=== PATIENT | male | born 1965 | race Caucasian/White ===

== ENCOUNTER → 2025-02-01 | Outpatient (CLI) | payer OTHER ==
--- NOTE | 2025-02-01 09:17 | CT ---
EXAMINATION TYPE: CT chest w con DATE OF EXAM: 02/01/2025 COMPARISON: NONE HISTORY: Cough CT DLP: 425 mGycm. Automated Exposure Control for Dose Reduction was Utilized. TECHNIQUE: CT scan of the thorax is performed following with IV Contrast, patient injected with 100 ml mL of Isovue 300. FINDINGS: LUNGS: The lungs are grossly clear, there is no concerning parenchymal mass or focal consolidation id entified. There is no pleural effusion or pneumothorax seen. The tracheobronchial tree is patent. HEART: Size within normal limits. No significant coronary artery calcifications. MEDIASTINUM: There are no greater than 1 cm hilar or mediastinal lymph nodes. No pericardial effusi on is seen. OTHER: No additional significant abnormality is seen. IMPRESSION: No acute pulmonary infiltrate. Unremarkable study. [facility], , 02/01/2025 9:14 AM
== END | disposition home or self-care (01) ==
LOC: RADCTMAIN 08:27
PROVIDERS: ATTEND Internal Medicine
DX: R05.9 Cough, unspecified (principal)
CPT/HCPCS: 71260; Q9967

== ENCOUNTER → 2025-02-15 | Outpatient (CLI) | payer OTHER ==
--- NOTE | 2025-02-15 10:52 | US ---
EXAMINATION TYPE: US liver DATE OF EXAM: 02/15/2025 COMPARISON: NONE CLINICAL INDICATION: Male, 59 years old with history of R74.01 ELEVATION OF LEVELS OF LIVER TRANSAMIN ASE L; elevated liver enzymes. TECHNIQUE: Grayscale and color Doppler imaging of the right upper quadrant was performed. FINDINGS: EXAM MEASUREMENTS: Liver Length: 12.6 cm Gallbladder Wall: .2 cm CBD: .5 cm Right Kidney: 9.7 x 3.6 x 5.3 cm PLATER BARREL NOTES: Pancreas: Obscured by bowel gas Liver: Hyperechoic area seen left lobe 1.5 x 1.1 x 1.4 cm. Gallbladder: No stones seen Evidence for sonographic Angeles's sign: No CBD: wnl Right Kidney: No hydronephrosis or masses seen IMPRESSION: 1. No evidence for acute process. 2. Hepatic lobe hyperechoic lesion which is indeterminate. Findings could represent benign hemangiom a versus other etiologies such as malignancy. Liver mass protocol MRI recommended for complete evalua tion. [facility], , 02/15/2025 10:49 AM
== END | disposition home or self-care (01) ==
LOC: RADUSWWP 09:36
PROVIDERS: ATTEND Internal Medicine
DX: R74.01 Elevation of levels of liver transaminase levels (principal)
CPT/HCPCS: 76705

== ENCOUNTER → 2025-02-27 | Outpatient (CLI) | payer OTHER ==
--- NOTE | 2025-02-27 15:44 | US ---
EXAMINATION TYPE: US thyroid st tissue head/neck DATE OF EXAM: 02/27/2025 COMPARISON: NONE CLINICAL INDICATION: Male, 59 years old with history of E03.9 hypothyroidism; TECHNIQUE: Grayscale and color Doppler imaging of the thyroid gland. FINDINGS: GLAND SIZE: Right Lobe: 6.2x1.5x2.0cm Overall Parenchyma: heterogeneous Left Lobe: 5.8x1.2x1.5cm Overall Parenchyma: heterogeneous Isthmus Thickness: 0.4m NODULES RIGHT: # of nodules measured on right: 0 LEFT: # of nodules measured on left: 1 1. 0.3 0.3x 0.4 cm, mid to lower pole cyst. ISTHMUS: # of nodules measured in the isthmus: 0 Bilateral neck scanned, no evidence of lymphadenopathy. IMPRESSION: 1. Heterogeneous parenchyma with thyromegaly; consider goiter or subacute thyroiditis. 2. A single benign 4 mm cyst in the left lobe. No suspicious thyroid nodule. [facility], , 02/27/2025 3:42 PM
== END | disposition home or self-care (01) ==
LOC: RADUSWWP 13:23
PROVIDERS: ATTEND Internal Medicine
DX: E04.1 Nontoxic single thyroid nodule (principal); E03.9 Hypothyroidism, unspecified
CPT/HCPCS: 76536

== ENCOUNTER → 2025-03-12 | Outpatient (CLI) | payer OTHER ==
--- NOTE | 2025-03-12 20:15 | MR ---
EXAMINATION TYPE: MR liver wo/w con DATE OF EXAM: 03/12/2025 6:33 PM INDICATION: Patient age:Male; 59 years old; Reason for study: K76.9 LIVER DISEASE, UNSPECIFIED; [facility]. COMPARISON: Ultrasound liver 02/15/2025 TECHNIQUE: Multiplanar multi-sequence imaging was performed without and with IV contrast. The patie nt was given 8 ccs of Gadobutrol intravenously and dynamic imaging was performed. Post IV contrast aquino btraction images were also submitted for review. FINDINGS: LOWER CHEST: No gross irregularity. ABDOMEN Liver: Noncirrhotic morphology. Segment IV T2 hyperintense and T1 hypointense 1.8 cm lesion (series 3 01, image 10). Additional segment V 2.1 cm lesion near the katrina hepatis (series 701, image 40). This demonstrates similar characteristics. Both demonstrate peripheral nodular discontinuous enhancement with central peripheral fill in. Complete fill in on delayed imaging. Additional subcentimeter left h epatic lobe T2 hyperintense nonenhancing cyst. Gallbladder and Bile ducts: Unremarkable. Pancreas: Unremarkable. Spleen: Unremarkable Adrenal glands: Unremarkable. Kidneys: Unremarkable. Stomach and Bowel: Unremarkable as visualized. Peritoneum: No evidence of pneumoperitoneum, free fluid, or adenopathy. Vasculature: Unremarkable. No aortic aneurysm. Abdominal wall: Small fat filled umbilical hernia. Musculoskeletal: The osseous structures appear intact. IMPRESSION: There are 2 hepatic lesions with characteristics consistent with benign hemangiomas. [facility], , 03/12/2025 8:13 PM
== END | disposition home or self-care (01) ==
LOC: RADMRIMAIN 17:34
PROVIDERS: ATTEND Internal Medicine
DX: K76.9 Liver disease, unspecified (principal); K42.9 Umbilical hernia without obstruction or gangrene
CPT/HCPCS: 74183; A9585